=== PATIENT | male | born 1950 ===

== ENCOUNTER → 2025-01-06 07:52 | Outpatient (REF) | payer MEDICARE, OTHER, SELFPAY | LOC: HWRCS 07:52 | PROVIDERS: ATTENDING PHYSICIAN Internal Medicine Cardiovascular Disease; FAMILY PHYSICIAN Internal Medicine | DX: I25.10 Atherosclerotic heart disease of native coronary artery without angina pectoris (principal); Z95.0 Presence of cardiac pacemaker; R07.89 Other chest pain | CPT/HCPCS: 78452; 93017; A9500; J2785 ==